=== PATIENT | female | born 1985 | race Caucasian/White ===

== ENCOUNTER 2017-08-09 05:09 | Inpatient (IN) | payer OTHER ==
--- NOTE | 2017-08-08 15:00 | MH ---
cc: NUZHAT VILLALOBOS DATE OF ADMISSION: 08/09/2017 HISTORY OF PRESENT ILLNESS She is [id number], 2, para 0-0-1-0, intrauterine at 39 weeks, for a primary for breech presentation. care has been with [facility] [employer]. 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 Gordillo. Has been on baby aspirin. She has a history of a goiter but normal TFTs, history of two-vessel cord, peripheral cord insertion, breech presentation. GCT was normal. Group B strep was negative. PAST OB HISTORY Significant for one miscarriage in 2014. GYNECOLOGIC HISTORY She had a resection of a uterine septum performed by infertility. Has had several assisted reproductive techniques performed. However, this is a spontaneous conception. She had a normal Pap smear in October of 2016 and has had a resection of the hymenal ring, history of endometriosis. PAST MEDICAL HISTORY She denies hypertension, diabetes or asthma. PAST SURGICAL HISTORY She had the hymen removal and the uterine septum removal. SOCIAL HISTORY She denies toxic habits. MEDICATIONS She takes vitamins, supplements and has discontinued her baby aspirin as of 7 days ago. ALLERGIES She is allergic to LATEX, CECLOR AND SEPTRA. PHYSICAL EXAMINATION VITAL SIGNS: Her vital signs are stable. Blood pressure is 110/62. She is 200 pounds. HEAD/HEART/CHEST/LUNGS: Exams are within normal limits. ABDOMEN: Soft, nontender, gravid. PELVIC: Exam was deferred. EXTREMITIES: No edema, cyanosis, clubbing, nontender. ASSESSMENT/PLAN She is 31 years-old, 2, para 0-0-1-0, intrauterine at 39 weeks, breech presentation. Risks, benefits, alternatives of the section have been explained. All of her questions have been answered. MD ESHA Young/BRYCE /2:34 PM /2:45 PM
[2017-08-09] VITALS (16 sets, daily range): BP systolic 114–129; BP diastolic 58–84; PULSE 64–80; RESP 12–18; TEMP 97.6–98.7; O2SAT 98–100
[~2017-08-09] VITALS: Ht 177.8 cm; Wt 90.7 kg
[2017-08-09] MEDS ORDERED: LACTATED RINGER'S 1000 ML IV SCH (06:30)
[2017-08-09] MEDS ORDERED: LACTATED RINGER'S 1000 ML IV ONE (06:30)
[2017-08-09] MEDS ORDERED: ceFAZolin 2 GM PREMIX 50 ML IV SCH (06:30)
[2017-08-09] MEDS ORDERED: CITRIC ACID-SODIUM CITRATE LIQ 30 ML UDC PO SCH (06:30)
[2017-08-09 06:32] LABS: AUTOMATED NEUTROPHIL # 8.6 TH/MM3 (1.8-7.7); BASOPHIL # 0.1 TH/MM3 (0-0.2); BASOPHIL % 0.5 % (0.0-2.0); EOSINOPHIL # 0.1 TH/MM3 (0-0.4); EOSINOPHIL % 0.6 % (0.0-4.0); HEMATOCRIT 38.7 % (35.0-46.0); HEMOGLOBIN 13.7 GM/DL (11.6-15.3); LYMPH % 15.2 % (9.0-44.0); LYMPHOCYTE # 1.7 TH/MM3 (1.0-4.8); MEAN CELL VOLUME 91.7 FL (80.0-100.0); MEAN CORPUSCULAR HEMOGLOBIN 32.4 PG (27.0-34.0); MEAN CORPUSCULAR HGB CONC 35.4 % (32.0-36.0); MONO % 6.4 % (0.0-8.0); MONOCYTE # 0.7 TH/MM3 (0-0.9); NEUT % 77.3 % (16.0-70.0); PLATELET COUNT 232 TH/MM3 (150-450); RED BLOOD COUNT 4.23 MIL/MM3 (4.00-5.30); RED CELL DISTRIBUTION WIDTH 12.9 % (11.6-17.2); WHITE BLOOD COUNT 11.1 TH/MM3 (4.0-11.0)
[2017-08-09 06:34] LABS: AMORPHOUS SEDIMENT, URINE RARE; BILIRUBIN, URINE NEG (NEG); BLOOD, URINE NEG (NEG); GLUCOSE,URINE NEG (NEG); KETONE, URINE NEG (NEG); MUCUS URINE FEW /lpf (OCC); NITRITE,URINE NEG (NEG); SQUAMOUS EPITHELIAL CELL URINE 6 /hpf (0-5); TRANSITIONAL EPI CELLS, URINE <1 /hpf; URINE COLOR YELLOW (YELLW/STRAW); URINE LEUKOCYTE ESTERASE TRACE (NEG)
[2017-08-09] MEDS ORDERED: [UNRECOGNIZED DRUG - CODE] (07:03)
[2017-08-09] MEDS ORDERED: [UNRECOGNIZED DRUG - OTHER] (07:03)
[2017-08-09] MEDS ORDERED: VITA1000 PO (07:03)
[2017-08-09] MEDS ORDERED: PREN29TA PO (07:03)
[2017-08-09] MEDS ORDERED: IODICRY (07:03)
[2017-08-09] MEDS ORDERED: ASCO500C (07:03)
[2017-08-09] MEDS ORDERED: FISH1200 (07:03)
[2017-08-09] MEDS ORDERED: [UNRECOGNIZED DRUG - OTHER] (07:03)
[2017-08-09] MEDS ORDERED: ASPI81CH6 CHEW (07:03)
[2017-08-09] MEDS ORDERED: [UNRECOGNIZED DRUG - OTHER] (07:03)
[2017-08-09] MEDS ORDERED: SELE200T8 (07:03)
[2017-08-09] MEDS ORDERED: [UNRECOGNIZED DRUG - OTHER] (07:03)
[2017-08-09] MEDS ORDERED: MORPHINE SULFATE PF 5 MG/10 ML VIAL ONE (07:17)
[2017-08-09] MEDS ORDERED: ACETAMINOPHEN 1000 MG/100 ML 100 ML IV ONE (08:10)
[2017-08-09] MEDS ORDERED: OXYTOCIN 30 UNITS-500ML PREMIX 500 ML IV ONE (08:30)
[2017-08-09] MEDS ORDERED: SIMETHICONE 80 MG CHEWABLE TAB PO PRN (08:30)
[2017-08-09] MEDS ORDERED: ZOLPIDEM TARTRATE 5 MG TAB PO PRN (08:30)
[2017-08-09] MEDS ORDERED: ONDANSETRON HCL 4 MG/2 ML VIAL IV PUSH PRN (08:30)
[2017-08-09] MEDS ORDERED: ACETAMINOPHEN 325 MG TAB PO PRN (08:30)
[2017-08-09] MEDS ORDERED: SODIUM CHLORIDE 0.9% FLUSH 10 ML FLUSH IV FLUSH PRN (08:30)
[2017-08-09] MEDS ORDERED: oxyCODONE/ACETAMINOPHEN 5 MG/325 MG TAB PO PRN (08:30)
[2017-08-09] MEDS ORDERED: MIDAZOLAM HCL 2 MG/2 ML VIAL ONE (08:53)
[2017-08-09] MEDS: SODIUM CHLORIDE 0.9% FLUSH 10 ML FLUSH IV FLUSH SCH (09:00)
[2017-08-09] MEDS ORDERED: OXYTOCIN 30 UNITS-500ML PREMIX 500 ML ONE (09:55)
[2017-08-09] MEDS ORDERED: PHENYLEPH/NS 1000 MCG/10 ML SYR IV ONE (12:00)
[2017-08-09] MEDS ORDERED: KETOROLAC TROMETHAMINE 30 MG/ML (IVP) VIAL IV PUSH ONE (12:00)
[2017-08-09] MEDS ORDERED: OXYTOCIN 10 UNIT/ML AMP IV ONE (12:00)
[2017-08-09] MEDS ORDERED: ePHEDrine/NS 25 MG/5 ML SYRINGE IV ONE (12:00)
[2017-08-09] MEDS ORDERED: LACTATED RINGER'S 1000 ML INJ 1,000 ML IV ONE (12:00)
[2017-08-09] MEDS ORDERED: ONDANSETRON HCL 4 MG/2 ML VIAL IV ONE (12:00)
[2017-08-09] MEDS ORDERED: LACTATED RINGER'S 1000 ML INJ 1,000 ML IV SCH (13:28)
[2017-08-09] MEDS ORDERED: OXYTOCIN 30 UNITS-500ML PREMIX 500 ML IV PRN (18:30)
[2017-08-09] MEDS: oxyCODONE/ACETAMINOPHEN 5 MG/325 MG TAB PO PRN ×2 (18:41→21:46)
[2017-08-09] MEDS: IBUPROFEN 600 MG TAB PO PRN (18:41)
--- NOTE | 2017-08-09 22:02 | MP ---
cc: NUZHAT CUNHA DATE OF SURGERY 08/09/2017 PREOPERATIVE DIAGNOSIS Intrauterine at 39 weeks, breech presentation. POSTOPERATIVE DIAGNOSIS Intrauterine at 39 weeks, breech presentation. PROCEDURE Primary lower segment transverse section via Pfannenstiel skin incision. SURGEON Dr. Eli Cunha ANESTHESIA Spinal fluids, 1200 mL crystalloid ESTIMATED BLOOD LOSS 750 mL URINE OUTPUT 400 mL clear at the end of the procedure. FINDINGS A live female was delivered breech presentation, Apgars 8 at 1 minute and 9 at 5 minutes. weight was 6 pounds 14 ounces PROCEDURE IN DETAIL The patient was taken to the operating room where spinal anesthesia was found to be adequate. She was prepped and draped in the normal sterile fashion in the dorsal supine position with a leftward tilt. A Pfannenstiel skin incision was made with a scalpel and carried down to the underlying layer of fascia. The fascia was nicked in the midline. The incision was extended laterally with curved Boykin scissors. Attention was turned to the inferior aspect of the incision which was grasped with Rica clamps, elevated and the rectus muscles dissected off sharply. Attention was turned to the superior aspect of the incision which was grasped with Rica clamps, elevated and the rectus muscles dissected off sharply. The rectus muscles were in the midline. The peritoneum was identified, grasped between two Becca clamps, elevated and entered sharply with Metzenbaum scissors. This incision was extended superiorly and inferiorly with good visualization of the bladder. The bladder blade was inserted. The vesicouterine peritoneum was identified, grasped with pickups and entered sharply with Metzenbaum scissors. This incision was extended laterally and the bladder flap created digitally. The lower uterine segment was incised in a transverse fashion with a scalpel. This incision was extended laterally with bandage scissors. The membranes were ruptured and meconium staining was noted. The breech was delivered sacrum anterior. The shoulders were delivered atraumatically. A nuchal cord was reduced after the head was delivered. The oral and nasopharynx were bulb suctioned with a syringe. The cord was clamped x2 and cut after waiting 45 seconds. The was handed off to the waiting nurse. The placenta was delivered manually and sent for donation. The uterus was cleared of all clots and debris. The uterine incision was repaired in two layers with one Vicryl. Hemostasis was assured. The gutters were cleared of all clots and debris. The fascia was reapproximated in a running fashion with 0 Vicryl. The skin incision was closed with lencho. A pressure dressing was applied. The sponge, lap, needle and instrument counts were correct x3. The patient was transferred to recovery room in stable condition. MD ESHA Young/ /8:28 AM /9:53 PM
[2017-08-10 02:00] VITALS: BP 125/76; PULSE 72; RESP 18; TEMP 98.6
[2017-08-10] MEDS: IBUPROFEN 600 MG TAB PO PRN ×4 (02:05→22:36)
[2017-08-10] MEDS: oxyCODONE/ACETAMINOPHEN 5 MG/325 MG TAB PO PRN ×4 (02:05→22:36)
[2017-08-10 05:30] VITALS: BP 120/82; PULSE 80; RESP 18; TEMP 98.5
[2017-08-10 05:58] LABS: AUTOMATED NEUTROPHIL # 10.8 TH/MM3 (1.8-7.7); BASOPHIL # 0.1 TH/MM3 (0-0.2); BASOPHIL % 0.4 % (0.0-2.0); EOSINOPHIL # 0.1 TH/MM3 (0-0.4); EOSINOPHIL % 0.8 % (0.0-4.0); HEMATOCRIT 30.3 % (35.0-46.0); HEMOGLOBIN 10.4 GM/DL (11.6-15.3); LYMPH % 13.7 % (9.0-44.0); LYMPHOCYTE # 1.9 TH/MM3 (1.0-4.8); MEAN CELL VOLUME 93.4 FL (80.0-100.0); MEAN CORPUSCULAR HEMOGLOBIN 32.2 PG (27.0-34.0); MEAN CORPUSCULAR HGB CONC 34.5 % (32.0-36.0); MEAN PLATELET VOLUME 8.4 FL (7.0-11.0); MONO % 6.7 % (0.0-8.0); MONOCYTE # 0.9 TH/MM3 (0-0.9); NEUT % 78.4 % (16.0-70.0); PLATELET COUNT 181 TH/MM3 (150-450); RED BLOOD COUNT 3.24 MIL/MM3 (4.00-5.30); RED CELL DISTRIBUTION WIDTH 12.8 % (11.6-17.2); WHITE BLOOD COUNT 13.8 TH/MM3 (4.0-11.0)
[2017-08-10 08:00] VITALS: BP 124/73; PULSE 67; RESP 16; TEMP 98.1; O2SAT 98
[2017-08-10] MEDS: SODIUM CHLORIDE 0.9% FLUSH 10 ML FLUSH IV FLUSH SCH (09:00)
--- NOTE | 2017-08-10 11:13 | HHI.OB ---
Subjective Post Operative Day: 1 Remarks Doing well post section yesterday for [place] breech has met with pricing consultant painful afterbirth contractions. Objective Vitals/I&O Vital Signs Date Time Temp Pulse Resp B/P (MAP) Pulse Ox O2 Delivery O2 Flow Rate FiO2 08/10/17 08:00 98.1 67 16 124/73 (90) 98 08/10/17 05:30 98.5 80 18 120/82 (95) 08/10/17 02:00 98.6 72 18 125/76 (92) 08/09/17 21:30 98.7 64 18 114/71 (85) 08/09/17 16:00 97.7 18 98 08/09/17 16:00 73 127/69 (88) Result Diagram: 08/10/17 0547 Objective Remarks GENERAL: Well-nourished, well-developed patient. CARDIOVASCULAR: Regular rate and rhythm without murmurs, gallops, or rubs. RESPIRATORY: Breath sounds equal bilaterally. No accessory muscle use. ABDOMEN/GI: Abdomen soft, non-tender, bowel sounds present. Incision: Clean, dry and intact. lencho in place Fundus: Firm, non-tender at umbilicus. GENITOURINARY: Light to moderate bleeding. EXTREMITIES: No cyanosis or edema, non-tender, without signs of DVT. Medications and IVs Current Medications Medications (Trade) Dose Ordered Sig/Katie Route Start Time Stop Time Status Last Admin Oxytocin 500 ml @ 100 mls/hr UNSCH X1 PRN IV 08/09/17 18:30 08/10/17 18:29 (NS Flush) 2 ml BID IV FLUSH 08/09/17 09:00 (NS Flush) 2 ml UNSCH PRN IV FLUSH 08/09/17 08:30 (Mylicon Chew) 80 mg QID PRN PO 08/09/17 08:30 (Tylenol) 650 mg Q6H PRN PO 08/09/17 08:30 (Motrin) 600 mg Q6H PRN PO 08/09/17 08:30 08/10/17 10:02 (Percocet 5-325 Mg) 1 tab Q4H PRN PO 08/09/17 08:30 08/10/17 10:02 (Percocet 5-325 Mg) 2 tab Q4H PRN PO 08/09/17 08:30 (Sydnee-Colace) 2 tab Q12H PRN PO 08/09/17 08:30 (Ambien) 5 mg HS PRN PO 08/09/17 08:30 (M-M-R Ii Inj) 0.5 ml ONCE ONCE SQ 08/10/17 16:00 08/10/17 16:01 (Boostrix Inj) 0.5 ml ONCE ONCE IM 08/10/17 16:00 08/10/17 16:01 (Zofran Inj) 4 mg Q6H PRN IV PUSH 08/09/17 08:30 Assessment/Plan Assessment and Plan POD 1 unremarkable anticipate discharge POD 3 Jeanie Scales MD Aug 10, 2017 11:13
[2017-08-10 12:00] VITALS: BP 121/75; PULSE 83; RESP 18; TEMP 97.8; O2SAT 98
[2017-08-10] MEDS ORDERED: DIPHTH/TETANUS/ACEL PERTUSSIS (BOOSTER) 0.5 ML VIAL/PFS IM ONE (16:00)
[2017-08-10] MEDS ORDERED: MEASLES, MUMPS, RUBELLA VACCINE 0.5 ML VIAL SQ ONE (16:00)
[2017-08-10 20:00] VITALS: BP 151/86; PULSE 72; RESP 18; TEMP 98; O2SAT 99
[2017-08-10 22:00] VITALS: BP 126/82
[2017-08-11] MEDS: oxyCODONE/ACETAMINOPHEN 5 MG/325 MG TAB PO PRN ×3 (04:25→16:56)
[2017-08-11] MEDS: DOCUSATE SODIUM 50 MG/SENNA 8.6 MG TAB PO PRN ×2 (04:26→22:57)
[2017-08-11] MEDS: IBUPROFEN 600 MG TAB PO PRN ×4 (04:26→22:57)
[2017-08-11 07:35] VITALS: BP 122/78; PULSE 74; RESP 20; TEMP 98
[2017-08-11] MEDS: SODIUM CHLORIDE 0.9% FLUSH 10 ML FLUSH IV FLUSH SCH (07:58)
--- NOTE | 2017-08-11 10:27 | HHI.OB ---
Subjective Post Operative Day: 2 Remarks doing well with nursing baby on phototherapy no complaints Objective Vitals/I&O Vital Signs Date Time Temp Pulse Resp B/P (MAP) Pulse Ox O2 Delivery O2 Flow Rate FiO2 08/11/17 07:35 74 122/78 (93) 08/11/17 07:35 98.0 20 08/10/17 22:00 126/82 (97) 08/10/17 20:00 98.0 72 18 151/86 (107) 99 08/10/17 12:00 97.8 83 18 98 08/10/17 12:00 121/75 (90) Result Diagram: 08/10/17 0547 Objective Remarks GENERAL: Well-nourished, well-developed patient. CARDIOVASCULAR: Regular rate and rhythm without murmurs, gallops, or rubs. RESPIRATORY: Breath sounds equal bilaterally. No accessory muscle use. ABDOMEN/GI: Abdomen soft, non-tender, bowel sounds present. Incision: Clean, dry and intact. lencho in place Fundus: Firm, non-tender at umbilicus. GENITOURINARY: Light to moderate bleeding. EXTREMITIES: No cyanosis or edema, non-tender, without signs of DVT. Medications and IVs Current Medications Medications (Trade) Dose Ordered Sig/Katie Route Start Time Stop Time Status Last Admin (NS Flush) 2 ml BID IV FLUSH 08/09/17 09:00 (NS Flush) 2 ml UNSCH PRN IV FLUSH 08/09/17 08:30 (Mylicon Chew) 80 mg QID PRN PO 08/09/17 08:30 08/11/17 08:08 (Tylenol) 650 mg Q6H PRN PO 08/09/17 08:30 (Motrin) 600 mg Q6H PRN PO 08/09/17 08:30 08/11/17 04:26 (Percocet 5-325 Mg) 1 tab Q4H PRN PO 08/09/17 08:30 08/11/17 04:25 (Percocet 5-325 Mg) 2 tab Q4H PRN PO 08/09/17 08:30 (Sydnee-Colace) 2 tab Q12H PRN PO 08/09/17 08:30 08/11/17 04:26 (Ambien) 5 mg HS PRN PO 08/09/17 08:30 (Zofran Inj) 4 mg Q6H PRN IV PUSH 08/09/17 08:30 Assessment/Plan Assessment and Plan POD 1 unremarkable anticipate discharge POD 3 08/11/17 10:30 POD 2 doing well home in am hopefully with Jeanie Baker MD Aug 11, 2017 10:27
[2017-08-11] MEDS ORDERED: OXYC1TAB63 PO (10:29)
--- NOTE | 2017-08-11 10:29 | HHI.DCPOC ---
Discharge Care Plan Report Symptoms to Your Doctor -Temperature above 100.5 degrees -Redness, of incision or excessive or foul smelling drainage -Unusual pain or calf pain -Increased vaginal bleeding -Painful or difficulty urinating -Feelings of extreme sadness or anxiety after 2 weeks Goals to Promote Your Health * To prevent worsening of your condition and complications * To maintain your health at the optimal level Directions to Meet Your Goals Take your medications as prescribed Follow your dietary instruction Follow activity as directed Ensure plenty of rest for recovery Drink fluids for hydration Keep your appointments as scheduled Take your immunizations and boosters as scheduled If your symptoms worsen call your PCP, if no PCP go to Urgent Care Center or Emergency Room Smoking is Dangerous to Your Health. Avoid second hand smoke Call the 24-hour crisis hotline for domestic abuse at Jeanie Scales MD Aug 11, 2017 10:29
[2017-08-11 20:25] VITALS: BP 138/84; PULSE 73; RESP 17; TEMP 97.9
[2017-08-12] MEDS: oxyCODONE/ACETAMINOPHEN 5 MG/325 MG TAB PO PRN ×4 (00:35→15:44)
[2017-08-12] MEDS: IBUPROFEN 600 MG TAB PO PRN ×2 (05:45→11:34)
[2017-08-12 08:00] VITALS: BP 126/78; PULSE 70; RESP 18; TEMP 98.4
--- NOTE | 2017-08-12 08:17 | HHI.OB ---
Subjective Post Operative Day: 3 Remarks POD#3; stable for discharge Objective Vitals/I&O Vital Signs Date Time Temp Pulse Resp B/P (MAP) Pulse Ox O2 Delivery O2 Flow Rate FiO2 08/11/17 20:25 73 138/84 (102) 08/11/17 20:25 97.9 17 Result Diagram: 08/10/17 0547 Objective Remarks GENERAL: Well-nourished, well-developed patient. CARDIOVASCULAR: Regular rate and rhythm without murmurs, gallops, or rubs. RESPIRATORY: Breath sounds equal bilaterally. No accessory muscle use. ABDOMEN/GI: Abdomen soft, non-tender, bowel sounds present. Incision: Clean, dry and intact. lencho in place Fundus: Firm, non-tender at umbilicus. GENITOURINARY: Light to moderate bleeding. EXTREMITIES: No cyanosis or edema, non-tender, without signs of DVT. Medications and IVs Current Medications Medications (Trade) Dose Ordered Sig/Katie Route Start Time Stop Time Status Last Admin (NS Flush) 2 ml BID IV FLUSH 08/09/17 09:00 (NS Flush) 2 ml UNSCH PRN IV FLUSH 08/09/17 08:30 (Mylicon Chew) 80 mg QID PRN PO 08/09/17 08:30 08/11/17 08:08 (Tylenol) 650 mg Q6H PRN PO 08/09/17 08:30 (Motrin) 600 mg Q6H PRN PO 08/09/17 08:30 08/12/17 05:45 (Percocet 5-325 Mg) 1 tab Q4H PRN PO 08/09/17 08:30 08/12/17 05:45 (Percocet 5-325 Mg) 2 tab Q4H PRN PO 08/09/17 08:30 (Sydnee-Colace) 2 tab Q12H PRN PO 08/09/17 08:30 08/11/17 22:57 (Ambien) 5 mg HS PRN PO 08/09/17 08:30 (Zofran Inj) 4 mg Q6H PRN IV PUSH 08/09/17 08:30 Assessment/Plan Assessment and Plan POD#3; Doing well, plan d/c to home; Remove lencho today Discharge Planning routine Attending Attestation seen by Shay Melgoza MD Aug 12, 2017 08:17
== END 2017-08-12 15:47 | disposition home or self-care (01) | DRG 766 ==
LOC: H2EB 05:09 → H1EA 10:14
PROVIDERS: ADMIT Obstetrics & Gynecology; ATTEND Obstetrics & Gynecology
PROC: 10D00Z1 Extraction of Products of Conception, Low, Open Approach (ICD-10-PCS; principal; 2017-08-09)
DX: O32.1XX0 Maternal care for breech presentation, not applicable or unspecified (principal); Z15.89 Genetic susceptibility to other disease; Z37.0 Single live birth; Z3A.39 39 weeks gestation of pregnancy
CPT/HCPCS: 59025; 80307; 81001; 85025; 86850; 86900; 86901; J0131; J0690; J1885; J2250; J2274; J2370; J2405; J2590; J3010; J7120